=== PATIENT | male | born 1965 | race American Indian/Alaskan Native ===

== ENCOUNTER 2018-05-13 00:20 | Emergency (ER) | payer MEDICAID ==
[2018-05-13 00:25] VITALS: BMI 23.3
[2018-05-13 00:27] VITALS: TEMP 97.5
[2018-05-13] MEDS ORDERED: TDAP Vaccine 0.5 mL Syr IM ONE (00:45)
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
[2018-05-13 04:49] VITALS: O2SAT 100
[2018-05-13 06:10] VITALS: BP 121/74; PULSE 85
[2018-05-13 06:17] VITALS: RESP 16
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
== END 2018-05-13 06:10 | disposition home or self-care (01) ==
LOC: ED 00:20
DX: S01.21XA Laceration without foreign body of nose, initial encounter (principal); Y04.0XXA Assault by unarmed brawl or fight, initial encounter; F11.10 Opioid abuse, uncomplicated; Z23 Encounter for immunization